=== PATIENT | male | born 1975 | race Caucasian/White ===

== ENCOUNTER 2021-05-06 02:47 | Emergency (ER) | payer SELFPAY ==
[~2021-05-06] VITALS: Ht 180.3 cm; Wt 79.4 kg
[2021-05-06 02:49] VITALS: BP 182/90
== END 2021-05-06 03:04 ==
LOC: MED 02:47
DX: F10.10 Alcohol abuse, uncomplicated (principal); Z02.89 Encounter for other administrative examinations; V89.2XXA Person injured in unspecified motor-vehicle accident, traffic, initial encounter; Y93.89 Activity, other specified; Y92.89 Other specified places as the place of occurrence of the external cause; Y99.8 Other external cause status
CPT/HCPCS: 99283